=== PATIENT | male | born 1980 ===

== ENCOUNTER 2016-08-07 12:12 | Emergency (ER) | payer OTHER ==
[2016-08-07] MEDS ORDERED: Ibuprofen 800 MG Tab ONE (12:30)
[2016-08-07] MEDS ORDERED: Amoxicillin 500 MG Cap ONE (12:30)
[2016-08-07 12:47] VITALS: BP 128/84
--- NOTE | 2016-08-07 14:34 | EDM.PDOC ---
ED HPI GENERAL MEDICAL PROBLEM - General Chief Complaint: General Stated Complaint: LEFT SIDE TOOTH PAIN Time Seen by Provider: 08/07/16 12:20 - History of Present Illness INITIAL COMMENTS - FREE TEXT/NARRATIVE: Pt claims that he has getting very weak teeth and martin lost most of the teeth. He has been having pain in his left lower jaw tooth since yesterday. No fever or chills. Has noticed some swelling of the left lower jaw. He took some motrin last night and has not helped with pain. No sore throat, no difficulty with swallowing or breathing. Onset: Today Duration: Day(s): (1) Location: Reports: Other (tooth) Quality: Reports: Ache Severity: Moderate Improves with: Reports: None Worsens with: Reports: None Associated Symptoms: Denies: Confusion, Chest Pain, Cough, Fever/Chills, Headaches, Nausea/Vomiting, Rash, Shortness of Breath, Syncope, Weakness Treatments [employer]CH[employer]ICIAN: Reports: Acetaminophen, Cold Therapy, NSAIDS Left Lower Face Pain Score (Numeric/FACES): 5 - Related Data Allergies Allergy/AdvReac Type Severity Reaction Status Date / Time No Known Allergies Allergy Verified 08/07/16 12:26 Home Meds: Home Meds NK [No Known Home Meds] 08/07/16 [History] Past Medical History - Past Health History Medical/Surgical History: Denies Medical/Surgical History - Infectious Disease History Infectious Disease History: Reports: Chicken Pox, Influenza Social & Family History - Family History Family Medical History: Noncontributory - Tobacco Use Smoking Status *Q: Never Smoker - Caffeine Use Caffeine Use: Reports: Coffee, Energy Drinks, Soda - Recreational Drug Use Recreational Drug Use: No ED ROS GENERAL - Review of Systems Review Of Systems: See Below Constitutional: Denies: Fever, Chills HEENT: Reports: Dental Pain. Denies: Contact Lenses, Rhinitis, Sinus Problem, Throat Pain, Throat Swelling Respiratory: Denies: Cough, Sputum Cardiovascular: Denies: Chest Pain, Lightheadedness GI/Abdominal: Denies: Abdominal Pain, Nausea, Vomiting Musculoskeletal: Denies: Joint Pain, Joint Swelling Skin: Denies: Pruritis, Rash ED EXAM, GENERAL - Physical Exam Exam: See Below Exam Limited By: No Limitations General Appearance: Alert, WD/WN, No Apparent Distress Eye Exam: Bilateral Eye: EOMI, PERRL Ears: Normal External Exam, Normal Canal, Hearing Grossly Normal, Normal TMs Ear Exam: Bilateral Ear: Auricle Normal, Canal Normal, TM normal Nose: Normal Inspection, Normal Mucosa, No Blood Throat/Mouth: Normal Inspection (There is swelling of left cheek), Normal Lips, Normal Oropharynx, Other (There is loss of almost every teeth in the oral ccavity. There is very small area of dentin present on few molars in all four quadrants. Pt does have poor oral hygiene. tedner over the left posterior molar to percussion) Course - Vital Signs Text/Narrative:: Pt's oral hygiene is very poor. He almost has compete loss of teeth in all 4 quadrants. He has open roots. Tender in left lower quadrant. he probably has deep socket infection. I have started him on amox 500mg 3 times daily for 10 days. Also advised to alternate motrin 800mg with tylenol every 4 hrs. Lysterine gargles 3-4 times daily. Followup with dentist on Tuesday. Last Recorded V/S: Last Vital Signs Temp 97.6 F 08/07/16 12:45 Pulse 98 08/07/16 12:45 Resp 16 08/07/16 12:45 BP 128/84 08/07/16 12:45 Pulse Ox 100 08/07/16 12:45 Departure - Departure Time of Disposition: 12:55 Disposition: Home, Self-Care 01 Condition: fair Clinical Impression: Infection of tooth socket - Discharge Information Instructions: Abscess, [id number], Antibiotic Medicine Referrals: PCP,None [Primary Care Provider] - Forms: ED Department Discharge Additional Instructions: get some Tylenol and use every 4 hours in between the Ibuprofen. Do not take with the Ibuprofen. Also get some Listeren mouth wash. - Problem List & Annotations (1) Infection of tooth socket SNOMED Code(s): 153191281 Code(s): M27.3 - ALVEOLITIS OF JAWS Status: Acute - Problem List Review Problem List Initiated/Reviewed/Updated: Yes - Assessment/Plan Assessment:: Tooth socket infection- Poor oral hygiene Plan: Pt's oral hygiene is very poor. He almost has compete loss of teeth in all 4 quadrants. He has open roots. Tender in left lower quadrant. he probably has deep socket infection. I have started him on amox 500mg 3 times daily for 10 days. Also advised to alternate motrin 800mg with tylenol every 4 hrs. Lysterine gargles 3-4 times daily. Followup with dentist on Tuesday.
== END 2016-08-07 13:00 | disposition home or self-care (01) ==
LOC: LB.ED 12:12
DX: M27.3 Alveolitis of jaws (principal)
CPT/HCPCS: 99282; A9270